=== PATIENT | male | born 2000 | race Two or more races ===

== ENCOUNTER 2018-09-02 06:32 | Emergency (ER) | payer MEDICAID, OTHER ==
[~2018-09-02] VITALS: Ht 165.1 cm; Wt 74.8 kg
[2018-09-02 06:38] VITALS: BP 133/78
[2018-09-02] MEDS ORDERED: HYDROCODONE/APAP 5/325MG 1 EACH TABLET ONE (07:01)
[2018-09-02] MEDS ORDERED: IBUPROFEN 400 MG TABLET ONE ×2 (07:01→07:05)
[2018-09-02] MEDS: HYDROCODONE/APAP 5/325MG 1 EACH TABLET PO ONE (07:07)
[2018-09-02] MEDS: IBUPROFEN 400 MG TABLET PO ONE (07:07)
== END 2018-09-02 07:27 | disposition home or self-care (01) ==
LOC: ER 06:34
DX: S16.1XXA Strain of muscle, fascia and tendon at neck level, initial encounter (principal); S39.012A Strain of muscle, fascia and tendon of lower back, initial encounter; J45.909 Unspecified asthma, uncomplicated; V49.59XA Passenger injured in collision with other motor vehicles in traffic accident, initial encounter; Y93.89 Activity, other specified; Y92.413 State road as the place of occurrence of the external cause; Y99.8 Other external cause status
CPT/HCPCS: 99283; A4606